=== PATIENT | female | born 1960 | race Caucasian/White ===

== ENCOUNTER 2017-01-23 07:10 | Day surgery (SDC) | payer BC, SELFPAY ==
--- NOTE | ~2017-01-23 | EGD ---
EGD REPORT [facility] [address] [place] [address] NAME: ROD LILLY : 58 [place] [facility] [place] [id number] AGE: 56 ADM/REG DATE : 01/23/17 MR#: [id number] REPORT SERV DATE: 01/23/17 DICTATED BY: VINAYAK LIZ DATE: 01/23/17 REPORT STATUS : Draft TRANSCRIBED BY: [facility] DATE: 01/23/17 Endoscopy Center Patient Name: Rod Lilly Date of : 1960 Attending MD: VINAYAK LIZ MD Procedure Date No Time: 01/23/2017 Procedure: Colonoscopy Indications: High risk colon cancer surveillance: Personal history of colonic polyps Referring MD: DIANA EDMONDSON Medicines: as per anesthesia Complications: No immediate complications. Procedure: Pre-Anesthesia Assessment: - ASA Grade Assessment: III - A patient with severe systemic disease. After I obtained informed consent, the scope was passed under direct vision. Throughout the procedure, the patient's blood pressure, pulse, and oxygen saturations were monitored continuously. The PCF [id number] was introduced through the anus and advanced to the cecum, identified by appendiceal orifice and ileocecal valve. The colonoscopy was performed without difficulty. The patient tolerated the procedure. The quality of the bowel preparation was adequate to identify polyps. Findings: The perianal and digital rectal examinations were normal. The colon (entire examined portion) appeared normal. Impression: - The entire examined colon is normal. Recommendation: - Repeat colonoscopy in 5 years for surveillance. Procedure Code(s): --- Professional --- 40538, Colonoscopy, flexible, proximal to splenic flexure; diagnostic, with or without collection of specimen(s) by brushing or washing, with or without colon decompression (separate procedure) Diagnosis Code(s): --- Professional --- Z86.010, Personal history of colonic polyps CPT copyright 2013 [employer]. All rights reserved. EGD REPORT [address] [place]. [address] NAME: ROD LILLY : 58 STATUS : REG [facility]#: [id number] AGE: 56 ADM/REG DATE : 01/23/17 MR#: [id number] REPORT SERV DATE: 01/23/17 DICTATED BY: VINAYAK LIZ. DATE: 01/23/17 REPORT STATUS : Draft TRANSCRIBED BY: [employer] DATE: 01/23/17 The codes documented in this report are preliminary and upon roll contour grinder review may be revised to meet current compliance requirements. VINAYAK LIZ MD 01/23/2017 9:55 AM This report has been signed electronically. Number of Addenda: 0 Note Initiated On: 01/23/2017 9:09 AM Scope Withdrawal Time 0 hours 6 minutes 50 seconds
--- NOTE | ~2017-01-23 | EGD ---
EGD REPORT [facility] [address] [place] [address] NAME: ROD LILLY : 58 STATUS : [place] [facility] [place] PAT#: [id number] AGE: 56 ADM/REG DATE : 01/23/17 MR#: [id number] REPORT SERV DATE: 01/23/17 DICTATED BY: VINAYAK LIZ DATE: 01/23/17 REPORT STATUS : Draft TRANSCRIBED BY: [facility] DATE: 01/23/17 Endoscopy Center Patient Name: Rod Lilly Date of : 1960 Attending MD: VINAYAK LIZ MD Procedure Date No Time: 01/23/2017 Procedure: Upper GI endoscopy Indications: Dysphagia, Heartburn, Suspected esophageal reflux Referring MD: DIANA EDMONDSON Medicines: as per anesthesia Complications: No immediate complications. Procedure: Pre-Anesthesia Assessment: - ASA Grade Assessment: III - A patient with severe systemic disease. After obtaining informed consent, the endoscope was passed under direct vision. Throughout the procedure, the patient's blood pressure, pulse, and oxygen saturations were monitored continuously. The GIF H190 [id number] was introduced through the mouth, and advanced to the third part of duodenum. The upper GI endoscopy was somewhat difficult. The patient tolerated the procedure. Findings: The examined esophagus was normal. The scope was withdrawn. Dilation was performed with a Carver dilator with no resistance at 46 Fr. A small hiatus hernia was present. The examined duodenum was normal. Impression: - Normal esophagus. Dilated. - Hiatus hernia. - Normal examined duodenum. Recommendation: - Follow an antireflux regimen. - Continue present medications. Procedure Code(s): --- Professional --- 47490, Esophagogastroduodenoscopy, flexible, transoral; diagnostic, including collection of specimen(s) by brushing or washing, when performed (separate procedure) 97758, Dilation of esophagus, by unguided sound or bougie, single or multiple passes Diagnosis Code(s): --- Professional --- K44.9, Diaphragmatic hernia without obstruction or EGD REPORT [facility] [address] [place]. [address] NAME: ROD LILLY : [birth year] STATUS : REG [facility] [place] PAT#: [id number] AGE: 56 ADM/REG DATE : 01/23/17 MR#: [id number] REPORT SERV DATE: 01/23/17 DICTATED BY: VINAYAK LIZ. DATE: 01/23/17 REPORT STATUS : Draft TRANSCRIBED BY: [employer] DATE: 01/23/17 gangrene R13.10, Dysphagia, unspecified R12, Heartburn CPT copyright 2013 [employer]. All rights reserved. The codes documented in this report are preliminary and upon health information coder review may be revised to meet current compliance requirements. VINAYAK LIZ MD 01/23/2017 9:40 AM This report has been signed electronically. Number of Addenda: 0 Note Initiated On: 01/23/2017 9:09 AM Scope Withdrawal Time 0 hours 0 minutes 0 seconds [address] [facility] [place] [address]
[~2017-01-23 07:10] MED LIST: ACET500CAP PO; COZ25 PO; PRILO PO; VITAMIN B-121000 MC1 SL
== END 2017-01-23 23:59 | disposition home or self-care (01) ==
LOC: DMU 07:10
PROVIDERS: Internal Medicine Gastroenterology
PROC: 0DJD8ZZ Inspection of Lower Intestinal Tract, Via Natural or Artificial Opening Endoscopic (ICD-10-PCS; principal; 2017-01-23 08:30)
PROC: 0D757ZZ Dilation of Esophagus, Via Natural or Artificial Opening (ICD-10-PCS; 2017-01-23 08:30)
DX: Z12.11 Encounter for screening for malignant neoplasm of colon (principal); K44.9 Diaphragmatic hernia without obstruction or gangrene; K21.9 Gastro-esophageal reflux disease without esophagitis; I10 Essential (primary) hypertension; E78.00 Pure hypercholesterolemia, unspecified; L30.9 Dermatitis, unspecified; E66.9 Obesity, unspecified; Z68.42 Body mass index [BMI] 45.0-49.9, adult; Z86.010 Personal history of colon polyps; Z90.49 Acquired absence of other specified parts of digestive tract; Z98.51 Tubal ligation status; Z98.890 Other specified postprocedural states; Z79.899 Other long term (current) drug therapy